=== PATIENT | female | born 1940 | race Two or more races ===

== ENCOUNTER → 2019-11-14 | Outpatient (CLI) | payer OTHER | END | disposition home or self-care (01) | LOC: MRI 10:28 | DX: D3A.092 Benign carcinoid tumor of the stomach (principal); K30 Functional dyspepsia; K57.30 Diverticulosis of large intestine without perforation or abscess without bleeding; K86.2 Cyst of pancreas | CPT/HCPCS: 74183; A9575; 74181 ==

== ENCOUNTER 2019-12-26 14:19 | Emergency (ER) | payer OTHER ==
[~2019-12-26] VITALS: Ht 157.5 cm; Wt 72.6 kg
[2019-12-26] MEDS ORDERED: PLAVIX75 MG (14:56)
[2019-12-26] MEDS ORDERED: FORTAMET500 MG (14:56)
[2019-12-26] MEDS ORDERED: SYNTHROID100 MCG PO (14:57)
[2019-12-26] MEDS ORDERED: CLONAZEPAM0.5 MG (14:58)
== END 2019-12-26 22:45 | disposition home or self-care (01) ==
LOC: ER 14:19
DX: R10.31 Right lower quadrant pain (principal)

== ENCOUNTER 2020-04-06 10:27 | Outpatient (CLI) | payer OTHER ==
[~2020-04-06 10:27] MED LIST: CLONAZEPAM0.5 MG; FORTAMET500 MG; PLAVIX75 MG; SYNTHROID100 MCG PO
== END 2020-04-06 10:33 | disposition home or self-care (01) ==
LOC: NUCLEAR 10:27
PROVIDERS: ATTEND Physical Medicine & Rehabilitation
DX: M81.0 Age-related osteoporosis without current pathological fracture (principal)

== ENCOUNTER 2020-04-06 11:35 | Outpatient (CLI) | payer OTHER | END 2020-04-06 15:30 | disposition home or self-care (01) | LOC: MAMO-SONO 11:35 | DX: Z12.31 Encounter for screening mammogram for malignant neoplasm of breast (principal); Z87.898 Personal history of other specified conditions; N64.4 Mastodynia ==

== ENCOUNTER → 2020-06-15 | Outpatient (CLI) | payer OTHER | END | disposition home or self-care (01) | LOC: MAMO-SONO 08:45 → SONOGRAMA 09:43 | PROVIDERS: ATTEND Internal Medicine | DX: N18.1 Chronic kidney disease, stage 1 (principal); R10.2 Pelvic and perineal pain ==

== ENCOUNTER 2021-02-19 18:51 | Emergency (ER) | payer OTHER ==
[~2021-02-19] VITALS: Ht 152.4 cm; Wt 74.8 kg
[2021-02-19] MEDS ORDERED: DILTIAZEM ER240 M3 PO (19:26)
[2021-02-19] MEDS ORDERED: CRESTOR10 MG PO (19:26)
[2021-02-19] MEDS ORDERED: FORTAMET500 MG (19:27)
== END 2021-02-19 20:22 | disposition home or self-care (01) ==
LOC: ER 18:51
DX: R06.02 Shortness of breath (principal)

== ENCOUNTER 2021-03-13 12:57 | Outpatient (CLI) | payer OTHER ==
[~2021-03-13 12:57] MED LIST changes: +CRESTOR10 MG PO; +DILTIAZEM ER240 M3 PO
== END 2021-03-13 13:06 | disposition home or self-care (01) ==
LOC: TOM 12:57
DX: C7A.00 Malignant carcinoid tumor of unspecified site (principal)

== ENCOUNTER 2021-03-22 10:07 | Outpatient (CLI) | payer OTHER | END 2021-03-22 10:13 | disposition home or self-care (01) | LOC: MRI 10:07 | PROVIDERS: ATTEND Internal Medicine Gastroenterology | DX: K86.2 Cyst of pancreas (principal); K29.40 Chronic atrophic gastritis without bleeding | CPT/HCPCS: 74181 ==

== ENCOUNTER → 2021-03-22 11:01 | Outpatient (CLI) | payer OTHER | END | disposition home or self-care (01) | LOC: LAB 11:01 | PROVIDERS: ATTEND Radiology Diagnostic Radiology | DX: K80.20 Calculus of gallbladder without cholecystitis without obstruction (principal) ==

== ENCOUNTER 2021-04-30 07:51 | Outpatient (CLI) | payer OTHER | END 2021-04-30 07:53 | disposition home or self-care (01) | LOC: NUCLEAR 07:51 | PROVIDERS: ATTEND Internal Medicine Cardiovascular Disease | DX: I11.0 Hypertensive heart disease with heart failure (principal); I50.32 Chronic diastolic (congestive) heart failure; R06.02 Shortness of breath; I20.9 Angina pectoris, unspecified | CPT/HCPCS: 78452; 93017; A9500; J1250 ==

== ENCOUNTER 2021-07-09 14:46 | Outpatient (CLI) | payer OTHER | END 2021-07-09 14:50 | disposition home or self-care (01) | LOC: NUCLEAR 14:46 | PROVIDERS: ATTEND Internal Medicine | DX: M81.0 Age-related osteoporosis without current pathological fracture (principal) ==

== ENCOUNTER 2021-12-03 09:25 | Outpatient (CLI) | payer OTHER | END 2021-12-03 09:31 | disposition home or self-care (01) | LOC: MRI 09:25 | PROVIDERS: ATTEND Internal Medicine Gastroenterology | DX: R10.11 Right upper quadrant pain (principal); K86.2 Cyst of pancreas; K29.40 Chronic atrophic gastritis without bleeding; R10.2 Pelvic and perineal pain | CPT/HCPCS: 74183; A9575 ==

== ENCOUNTER 2022-10-13 16:18 | Emergency (ER) | payer OTHER ==
[~2022-10-13] VITALS: Ht 157.5 cm; Wt 81.6 kg
== END 2022-10-13 22:13 | disposition home or self-care (01) ==
LOC: ER 16:18
DX: T07.XXXA Unspecified multiple injuries, initial encounter (principal); W07.XXXA Fall from chair, initial encounter; Y93.9 Activity, unspecified; Y92.9 Unspecified place or not applicable

== ENCOUNTER 2023-04-03 12:49 | Outpatient (CLI) | payer OTHER | END 2023-04-03 13:26 | disposition home or self-care (01) | LOC: LAB 12:49 | DX: K86.2 Cyst of pancreas (principal) ==

== ENCOUNTER 2023-04-30 05:17 | Day surgery (SDC) | payer OTHER ==
[~2023-04-30] VITALS: Ht 157.5 cm; Wt 73.0 kg
== END 2023-04-30 12:50 | disposition home or self-care (01) ==
LOC: CIR.AMB 05:17
PROVIDERS: ATTEND Orthopaedic Surgery
DX: M75.121 Complete rotator cuff tear or rupture of right shoulder, not specified as traumatic (principal); M24.111 Other articular cartilage disorders, right shoulder; Z20.822 Contact with and (suspected) exposure to COVID-19; I10 Essential (primary) hypertension

== ENCOUNTER 2024-05-23 10:17 | Outpatient (CLI) | payer OTHER | END 2024-05-23 10:21 | disposition home or self-care (01) | LOC: RX STUDY 10:17 | PROVIDERS: ATTEND Internal Medicine Gastroenterology | DX: R13.10 Dysphagia, unspecified (principal) ==

== ENCOUNTER 2024-12-07 13:37 | Emergency (ER) | payer OTHER ==
[~2024-12-07] VITALS: Ht 157.5 cm; Wt 69.9 kg
[2024-12-07] MEDS ORDERED: DIPHENHYDRAMINE HCL 50 MG/ML VIAL 1ML ONE (17:40)
[2024-12-07] MEDS ORDERED: METHYLPREDNISOLONE SOD SUCC 125 MG VIAL ONE (17:40)
[2024-12-07] MEDS ORDERED: METHYLPREDNISOLONE SOD SUCC 125 MG VIAL IV ONE (17:45)
[2024-12-07] MEDS ORDERED: DIPHENHYDRAMINE HCL 50 MG/ML VIAL 1ML IV ONE (17:45)
[2024-12-07 17:58] LABS: HEMATOCRIT 37.9 % (36.0-45.00); HEMOGLOBIN 12.1 g/dL (12.0-15.00); MEAN CELL VOLUME 83.7 fL (80.00-100.00); MEAN CORPUSCULAR HEMOGLOBIN 26.8 pg (27.00-32.0); MEAN CORPUSCULAR HGB CONC 32.1 g/dl (32.0-36.0); PLATELET COUNT 259 K/uL (150-450); RED BLOOD COUNT 4.53 M/uL (4.00-6.00); RED CELL DISTRIBUTION WIDTH 16.4 % (11.5-14.5)
[2024-12-07 18:42] LABS: PH,URINE 5.5 (5.0-8.0); URINE APPEARANCE Clear; URINE BILIRRUBIN Negative (NEGATIVE); URINE BLOOD Negative; URINE COLOR Yellow; URINE GLUCOSE Negative (NEGATIVE); URINE KETONE Negative (NEGATIVE); URINE LEUKOCYTE Trace; URINE NITRATE Negative; URINE PROTEIN Trace (NEGATIVE); URINE UROBILINOGEN 0.2 E.U./dl
[2024-12-07 18:46] LABS: URINE BACTERIA 30.5 uL (0.0-1933); URINE RBC 68.9 uL (0.0-20.8); URINE WBC 27.5 uL (0.0-23.2)
[2024-12-07 18:50] LABS: URINE CAST 0.29 uL (0.0-1.40)
[2024-12-07] MEDS ORDERED: ZYRTEC10 MG PO (21:52)
== END 2024-12-07 22:01 | disposition home or self-care (01) ==
LOC: ER 13:40
PROVIDERS: Preventive Medicine Public Health & General Preventive Medicine
DX: R53.81 Other malaise (principal); T78.40XA Allergy, unspecified, initial encounter; Z20.822 Contact with and (suspected) exposure to COVID-19; I10 Essential (primary) hypertension; E03.8 Other specified hypothyroidism; E11.9 Type 2 diabetes mellitus without complications; Z79.84 Long term (current) use of oral hypoglycemic drugs; Z88.6 Allergy status to analgesic agent; Z91.041 Radiographic dye allergy status